=== PATIENT | male | born 1990 | race American Indian/Alaskan Native ===

== ENCOUNTER 2021-07-21 07:59 | Emergency (ER) | payer SELFPAY ==
--- NOTE | 2021-07-21 12:32 | Emergency Department Report ---
ED Psych HPI - General Chief Complaint: Psych Stated Complaint: MENTAL EVAL Time Seen by Provider: 07/21/21 12:23 Source: patient Mode of arrival: Ambulatory Limitations: No Limitations - History of Present Illness Initial Comments: 31-year-old male without any psychiatric history presents to the hospital requesting a "court ordered mental health evaluation". [facility]. Patient apparently discharged a gun in mother's home and has other charges related to incident. He was told he needed a mental health evaluation within 5 days of release. He denies being provided a list of mental health providers and he came to the ER for evaluation. Patient denies hallucinations, suicidal ideation, or homicidal ideation. He denies any physical complaints or drug use at this time - Related Data Allergies Allergy/AdvReac Type Severity Reaction Status Date / Time No Known Food Allergies Allergy none Verified 07/21/21 12:32 ED Review of Systems ROS: Stated complaint: MENTAL EVAL Other details as noted in HPI Comment: All other systems reviewed and negative ED Physical Exam - General Limitations: No Limitations - Other Other exam information: General: No acute distress Head: Atraumatic Eyes: normal appearance ENT: Moist mucous membranes Neck: Normal appearance, no midline tenderness Chest: Clear to auscultation bilaterally CV: Regular rate and rhythm Abdomen: Soft, normal bowel sounds, nontender, nondistended, no rebound or guarding Back: Normal inspection Extremity: Normal inspection, full range of motion Neuro: Alert O x 3, no facial asymmetry, speech clear, no gross motor sensory deficit Psych: Appropriate behavior Skin: No rash ED Course Vital Signs 07/21/21 08:14 Temperature 99.1 F Pulse Rate 103 H Respiratory 20 Rate Blood Pressure 125/86 [Right] O2 Sat by Pulse 97 Oximetry - Consultations Consultation #1: 07/21/21 12:38 Mental health evaluation requested and ordered 07/21/21 12:53 Patient now states he no longer wants to wait for in-house mental evaluation by nurse practitioner and prefers to be discharged with a list of outpatient referral ED Medical Decision Making - Medical Decision Making 31-year-old asymptomatic male presents to the hospital requesting a court ordered mental health evaluation. Patient seems to be unclear as to where he was supposed to go for this evaluation. During his initial screening in the ER he denies suicidal ideation, homicidal ideation, or acute psychosis and therefore he does not require 1013 at this time. He also denies physical complaints. He was offered an evaluation by a nurse practitioner which he initially accepted but then subsequently declined because he did not want a prolonged wait in the ED. He was provided a list of outpatient mental health options and encouraged to recontact his managing attorney for further instructions and possible court provided list of mental health providers (placed in chart by Fatemeh BRADY graduate nurse) Critical Care Time: No Critical care attestation.: If time is entered above; I have spent that time in minutes in the direct care of this critically ill patient, excluding procedure time. ED Disposition Clinical Impression: Encounter for screening examination for mental health and behavioral disorders Disposition: HOME / SELF CARE / HOMELESS Is pt being admited?: No Condition: Stable Additional Instructions: You do not meet criteria for 1013 or emergent psychiatric admission at this time based on your initial Emergency department interview. At this time you lack acute psychosis, suicidal, or homicidal ideation. Please follow-up as an outpatient for your court ordered psychiatric assessment. Several options have been provided below. Also check with your managing attorney to see if a list of approved Mental health providers were provided by the court. If you develop hallucinations, suicidal or homicidal thoughts return to the ER for evaluation Professional and Agency Contacts To help [facility] (02/09) [place] Crisis Line: Suicide Prevention Line: Crisis Text Line: Text START to 594300 Emergency: 911 Outpatient COMMUNITY Behavioral Health Resources: [facility]: [facility] [address], [place] [address] [facility] ([facility] [address] [place] [address] Friday thru Friday - 8am - 5pm Call to schedule an assessment for mental health and substance abuse programs [facility] Address: [address] [place] [address] Friday thru Friday- 7am-2pm [facility] Address: [address] [place] [address] Friday thru Friday: 8:30AM-5PM Referrals: [facility] [Primary Care Provider] - 3-5 Days [facility] [Provider Group] - 3-5 Days Time of Disposition: 12:58
[2021-07-21 14:47] VITALS: BP 118/80
== END 2021-07-21 14:47 | disposition home or self-care (01) ==
LOC: ED 07:59
DX: Z13.30 Encounter for screening examination for mental health and behavioral disorders, unspecified (principal)
CPT/HCPCS: 99282